=== PATIENT | female | born 1980 | race Caucasian/White ===

== ENCOUNTER → 2024-02-04 09:35 | Outpatient (REF) | payer OTHER, SELFPAY | LOC: HWRAD 09:35 | PROVIDERS: ATTENDING PHYSICIAN Internal Medicine Gastroenterology | DX: R10.84 Generalized abdominal pain (principal) | CPT/HCPCS: 76700 ==

== ENCOUNTER → 2024-02-16 12:57 | Outpatient (REF) | payer OTHER, SELFPAY | LOC: RAD 12:57 | DX: R10.9 Unspecified abdominal pain (principal) | CPT/HCPCS: 76830; 76856 ==